=== PATIENT | male | born 1965 | race Caucasian/White ===

== ENCOUNTER 2019-10-20 18:36 | Observation (INO) | payer OTHER, SELFPAY ==
[2019-10-20] VITALS (38 sets, daily range): BP systolic 127–182; BP diastolic 79–131; PULSE 77–107; RESP 13–30; TEMP 36.4; O2SAT 93–99
[2019-10-20] MEDS: Normal Saline 1,000 ML 1000 ML IV (18:43)
[2019-10-20 18:47] LABS: BE (Venous) 2.6 mmol/L (-3-3); HCO3 (Venous) 28 mmol/L (22-28); O2 Sat (Venous) 69 % (70-80); TCO2 (Venous) 24 mmol/L (22-29); pCO2 (Venous) 45 mm/Hg (34-47); pO2 (Venous) 36 mm/Hg (28-44)
--- NOTE | 2019-10-20 19:00 | W.ED.GENAD ---
Discharge Plan Disposition Patient Disposition: [facility] IN[facility] Condition: Stable Discharge Details Chief Complaint: ETOHWithdr Clinical Impression: Alcohol dependence with acute alcoholic intoxication, Depression, Suicidal intent Admit Date/Time: 10/21/19 15:15 Admit Provider: Shannen Luna Attending Provider: Shannen Luna Primary Care Provider: Li Betancourt ED Provider: Guillermina Vivar Discharge Data Discharge Date/Time-TO BE ENTERED AT DEPARTURE: 10/21/19 16:02 Medical Decision Making <Abdirahman Swain DO - Last Filed: 10/20/19 23:49> This is a 53-year-old male with a past medical history of significant alcoholism, who [facility] to [facility] as he stated he was trying to withdraw. This evening he took a few Valium which seemed to be 3-4 Valium per EMS count. There were 5 mg each. He states that he was trying to hurt himself but regrets it now. He is notably intoxicated. He has no history of DT's in the past. He is notably intoxicated but he is also very aggressive, which appears inconsistent with a Valium overdose. We will monitor closely evaluate for any other toxic ingestion, rehydrate, and get a sitter, and contact mental health for evaluation. 11:19 PM Mental health has come and seen reassess the patient, they to feel that although he is intoxicated now that he would benefit from potential admission and certainly rehab. Laboratory work-up is notably unremarkable. Salicylates acetaminophen are negative. Alcohol is 193. Urine drug screen is also negative which was unexpected. The patient does agree to accepting help, as well as alcohol detoxification in therapy. Family requested specifically that [facility] for [facility] of this as a notable plan was already in place for the patient there. We did contact the [facility], and unfortunately secondary to the patient's insurance they will not pay for him to be transported via EMS. At first after this news family decided to keep him here, however after multiple discussions with family, and mental health and shared decision making process family made it clear that above all else they wanted him going to the [facility] for the [facility]hab and detoxification, and would be willing to pay whatever ambulance bill was necessary. The [facility] was contacted again, I spoke with Dr. Anderson in the ED, and after contacting with both her supervisor final and the hospital arts administrator or manager she states that there is a new policy at this time that is not yet on paper but currently the modus operandi of the system at the [facility]. She states that before any patient is able to be transferred for potential rehab or detox and need to be medically sober with a blood draw demonstrating no evidence of significant intoxication, after this they can then consent for transfer to the facility. She has requested specifically that a repeat alcohol level be drawn at 2 AM, and if it is within normal limits at that time patient can be transferred to the facility potentially directly to mental health at [facility]. Case was signed out to my colleague Dr. Mcgill for repeat assessment upon repeat alcohol draw. EKG 18: 37 Rate 106, intervals normal, sinus tachycardia, no significant ST elevation or depression, notable artifact. Questionable Q wave in lead III and aVF. No evidence of STEMI. No widened QRS. <Jose Manuel Mcgill MD - Last Filed: 10/21/19 20:13> Patient signed out to me pending repeat alcohol level and discussion with [facility] regarding transfer. Patient had presented to ED with alcohol intoxication and depression/suicidal thoughts. He had been seen at the [facility] for alcohol dependence. He has been seen by mental health who has been able to get from him that last week he actually had a gun that he was considering using to end his life. Patient's family has subsequently removed all guns from the house. Today patient reportedly took Valium and alcohol in an attempt to make everything stop. He has been with a CPSO during his stay here. He has been for the most part calm and cooperative and respectful. I spoke to the residential door unit installer at the [facility] when the patient's repeat alcohol level came back below 80. Resident then spoke to the patient directly over the phone. Patient had told me that he was willing to go to [facility] for help. Once he spoke to the resident at the [facility] and was told what the unit was like and what was expected, he decided he would not go there. His nurse spoke to him at length. We had his speak to him at length. He declines to voluntarily go to the [facility] at this point. I do not think that he is safe for discharge home. I will plan to keep him here with transition to a bed upstairs to reconvene case management, mental health, family in determining next appropriate step. I did explain to the patient that I did not think he was safe for discharge. I also explained the difference between voluntary and involuntary placement. Given the events and the alcohol use if necessary patient would be appropriate to EE. He is aware of this and at this point in time agrees to voluntarily stay here for further evaluation and management. I have placed him on CIWA protocol with p.o. Ativan as needed. Will be maintained with CPSO. Is medically cleared at this point and not showing any significant signs of alcohol withdrawal. Lab Data Lab results reviewed: Yes I reviewed the patient's lab results. <Guillermina Vivar DO - Last Filed: 10/21/19 17:36> 0800 --please see previous providers notes for initial presentation, plan and course. 53-year-old male with a history of depression and heavy alcohol use presented last evening after taking 5-6 Valium while intoxicated. He texted his that he was sorry for everything and he was going to go to sleep. His was very concerned with this text that he was suicidal and returned home and called 911. Patient intoxicated on arrival to ED but is now sober and has been medically cleared. Case endorsed to follow-up with care management mental health regarding inpatient hospitalization. Patient is followed at the [facility] and plan is for transfer to their mental health unit. Patient is currently voluntary. If is requesting to leave, plan is for completing EE paperwork. 1000 --mental health discussed with patient who is not in agreement with plan for hospitalization. This was discussed with patient at bedside and he stated I guess I have no choice and was understanding of plan for completing EE. Luz Elena from mental health discussed with patient at bedside who stated that his license to carry arms would likely be revoked if he is not voluntary and has EE. Patient was also of the understanding that he would be on lockdown and in a cage at the [facility] which we discussed would not be the case. After further discussion, patient is now voluntary. 1200 --no beds available at the [facility]. Case discussed with care management and mental health and will determine if patient is able to be sent to any other facility based on insurance coverage as he is not fully serviced through the [facility]. 1400 --Case discussed with care management and patient can be admitted here overnight pending inpatient hospitalization. Discussed with hospitalist who accepts patient for admission. HPI <Abdirahman Swain DO - Last Filed: 10/20/19 23:49> General Date/Time Provider Initiated Documentation: 10/20/19 18:39. HPI Narrative: This is a 53-year-old male with a past medical history of depression, PTSD, chronic alcoholism, who presents today from [facility] for evaluation of potential overdose. is at bedside, per she states that for the last few weeks he has been having a notably difficult time he has been drinking an excessive amount of alcohol. He has sought some help at the [facility], and he was recently prescribed some Valium to prevent DTs. He has no history of seizures though. Earlier tonight he took 3-4 Valium in addition to having had significant alcohol intoxication. He apologized to his profusely in his intoxicated state, and states that he was trying to hurt himself and regrets it. EMS was called and the patient was brought to the ED for further evaluation. Patient does appear notably intoxicated, however at this time he states that he is not suicidal but he did try to hurt himself before. Vital signs are stable by EMS. Patient is a poor historian secondary to his intoxication. denies any other complaints or significant other medical problems aside for hypertension. states that he is once depressed and suicidal before years ago before she was involved in his life. Related Data Home Medications Medication Instructions Recorded Confirmed atorvastatin 40 mg PO DAILY 10/21/19 10/21/19 hydrochlorothiazide 25 mg PO DAILY 10/21/19 10/21/19 lisinopril 40 mg PO DAILY 10/21/19 10/21/19 Allergies Allergy/AdvReac Type Severity Reaction Status Date / Time No Known Allergies Allergy Unverified 10/20/19 19:23 General Stated Complaint: ETOHWithdr JOVAN: 2 Review of Systems <Abdirahman Swain DO - Last Filed: 10/20/19 23:49> All systems reviewed & are unremarkable except as noted in HPI and below PFSH <Abdirahman Swain DO - Last Filed: 10/20/19 23:49> Medical History (Updated 10/21/19 @ 17:59 by Mandi Salamanca NP) Alcohol abuse (Chronic) Anxiety (Chronic) Depression (Chronic) Former smoker (Acute) Hyperlipidemia (Acute) Hypertension (Chronic) Surgical History (Updated 10/21/19 @ 18:00 by Mandi Salamanca NP) H/O elbow surgery (Acute) H/O right wrist surgery (Acute) H/O spinal fusion (Acute) Social History Smoking/Tobacco Use Status: Former Tobacco Use Alcohol Intake: current Alcohol Intake frequency: 3 or more drinks per day Alcohol type: beer Details: unknown- taking benzodiazepines for withdrawal per pt report. Approx 30 beers/day Additional Social history: unable to assess privately Exam <Abdirahman Swain DO - Last Filed: 10/20/19 23:49> Narrative Exam Narrative: 1.Const: Well-nourished, Well-developed, appearing stated age, no evidence of significant trauma. 2.Eyes: PERRL, no conjunctival injection, and symmetrical lids. 3.ENT: Atraumatic external nose and ears. Moist MM. Neck: Symmetric, trachea midline, No thyromegaly. 4.CVS: +S1/S2, No murmurs or gallops. Peripheral pulses 2+ and equal in all extremities. Brisk capillary refill in all extremities. 5.RESP: Unlabored respiratory effort. Clear to auscultation bilaterally. No wheezes rales or rhonchi. No stridor. 6.GI: Soft, Nontender/Nondistended, No hepatosplenomegaly. No guarding or rebound. 7.MSK: Normocephalic/Atraumatic, Extremities w/o deformity or ttp No cyanosis or clubbing, Normal movement of all extremities 8.Skin: Warm, Dry. No rashes or lesions. 9.Neuro: senior structural engineer II-XII grossly intact. Sensation grossly intact, no focal neurologic deficits. 10.Psych: (AAO) x3. Notably intoxicated. Course <Abdirahman Swain DO - Last Filed: 10/20/19 23:49> Vital Signs Vital signs: Vital Signs Temperature 36.4 C L 10/20/19 18:32 Pulse 107 H 10/20/19 18:32 Respiratory Rate 22 10/20/19 18:32 Blood Pressure 171/131 H 10/20/19 18:32 Pulse Oximetry 98 10/20/19 18:32 Temperature 36.4 C L 10/20/19 18:32 Temperature Source Skin 10/20/19 18:32 Pulse 107 H 12/02/19 18:32 Respiratory Rate 22 10/20/19 18:32 Blood Pressure 171/131 H 10/20/19 18:32 Blood Pressure Position Supine 10/20/19 18:32 Pulse Oximetry 98 10/20/19 18:32 Oxygen Delivery Method Room Air 10/20/19 18:32 Oxygen Flow Rate 0 10/20/19 18:32 Lab/Test Results Lab/Test Results: Laboratory Tests Range/Units 10/20/19 18:40 VBG pH (7.32-7.43) 7.40 VBG pCO2 (34-47) mm/Hg 45 VBG pO2 (28-44) mm/Hg 36 VBG HCO3 (22-28) mmol/L 28 VBG Total CO2 (22-29) mmol/L 24 VBG O2 Saturation (70-80) % 69 L VBG Base Excess (-3-3) mmol/L 2.6 Sign Out <Abdirahman Swain DO - Last Filed: 10/20/19 23:49> Sign Out Data: Sign Out Comment: Repeat alcohol level at 2 AM, reassessment at that time. [facility] Recommend discussing case with Dr. Anderson at the [facility] prior to transfer. Last updated by Abdirahman Swain DO at 10/20/19 23:50 Sign Out Comment: Pending reevaluation by mental health, case management and attempts to find placement. Last updated by Jose Manuel Mcgill MD at 10/21/19 08:01
[2019-10-20 19:03] LABS: ALT 47 U/L (16-63); AST 34 U/L (15-37); Albumin 3.8 g/dL (3.4-5.0); Alkaline Phosphatase 83 U/L (46-116); BUN 10 mg/dL (7-18); Bilirubin, Total 0.3 mg/dL (0.2-1.0); CREATININE 1.07 mg/dL (0.70-1.30); Chloride 103 mmol/L (98-107); Glucose 103 mg/dL (74-106); Potassium 3.4 mmol/L (3.5-5.1); Sodium 141 mmol/L (136-145); Total Protein 7.9 g/dL (6.4-8.2)
[2019-10-20 19:13] LABS: ETHANOL BLOOD 193.4 mg/dL (<3); TSH (W/Ref FT4) 1.23 uIU/mL (0.36-3.74); Troponin I < 0.05 ng/Ml (<0.06)
[2019-10-20 19:15] LABS: Abs Immature Grans 0.02 k/cumm (0.0-0.09); Absolute Basophil Count 0.03 k/cumm (0.0-0.2); Absolute Lymphocyte Count 2.01 k/cumm (1.2-3.4); Absolute Monocyte Count 0.59 k/cumm (0.11-0.7); Absolute Neutrophil Count 2.91 k/cumm (1.2-6.7); Basophils % 0.5; Eosinophils % 3.5; HCT 46.4 % (40.0-50.0); HGB 15.7 g/dL (13.5-17.5); Immature Grans % 0.3; Lymphocytes % 34.9; Mean Corp. HGB Concentration 33.8 g/dL (32.0-36.0); Mean Corpuscular Hemoglobin 31.2 pg (27.0-33.0); Mean Corpuscular Volume 92.1 fL (80-95); Mean Platelet Volume 9.9 fL (8.0-11.0); Monocytes % 10.2; Neutrophils % 50.6; Platelet Count 248 x1000/uL (130-400); RBC 5.04 m/cumm (4.50-6.00); RBC Distribution Width 12.4 % (11.8-14.1); White Blood Cell Count 5.76 k/cumm (4.4-10.8)
[2019-10-20 19:20] LABS: Salicylate < 2.8 mg/dL (2.8-20.0)
[2019-10-20 19:21] LABS: Acetaminophen < 2 ug/mL (10-30)
[2019-10-20 19:30] LABS: *AMPHETAMINES SCREEN URINE Negative (Negative); *BARBITURATES SCREEN URINE Negative (Negative); *BENZODIAZEPINES SCREEN URINE Negative (Negative); Cannabinoids THC Negative (Negative); Cocaine Screen,Urine Negative (Negative); METHADONE URINE SCREEN Negative (Negative); OPIATES URINE SCREEN Negative (Negative)
[2019-10-20 19:31] LABS: Tricyclic Antidepressants Negative (Negative)
[2019-10-20] MEDS: MAGNESIUM SULFATE 8.12 MEQ, MULTIVITAMIN 10 ML, THIAMINE 100 MG, FOLIC ACID 1 MG in Nor... 168.867 MG IV (20:00)
--- NOTE | 2019-10-20 20:51 | PDOC.CMSAFED ---
- If Service Date Differs Date of service: 10/20/19 Time of Service: 20:51 Care Management Safety Plan Jose David is a 53 year old man who was brought to the ED by EMS after reportedly taking 3-4 Valium pills while intoxicated . He told that he wanted to hurt himself, but he regrets it now. Per , he has been having a hard time and has been drinking a lot in the past few weeks. [facility] and was prescribed Valium to help with withdrawal. He does have a remote history of depression with a suicidal attempt. Jose David stated to the provider that he does not want to hurt himself at this time. He remains visibly intoxicated with an elevated blood alcohol level. Will be screened by Mental Health when sober. CM will respond to ED to assess patient after patient has been medically cleared and assessed by screener. If screener deems patient meets criteria for psychiatric stabilization CM will facilitate interdepartmental huddle with [facility] screener for safety planning considerations and meet with patient to review [facility] policy and safety plan, establish individual wishes for treatment and maintain patient rights. In the interim; please note safety plan below to guide patient care while awaiting further assessment in the ED. SAFETY PLAN: 1. Will remain on suicide precautions and in paper clothes. 2. Will remain in room under direct supervision of one-on-one staff at all times provided by JAZMINE, HOME HEALTH CARE PROVIDER supervisor electron tube processing. 3. May have paper cups, plates, finger foods as well as a cardboard spoon with which to eat meals. 4. Follow [facility] Management of the Admitted Behavioral Health Patient policy. 5. Comfort bath system only. 6. No personal belongings 7. only to visit. 8. Phone contact limited to . 9. Due to VOLUNTARY status, if patient wishes to leave [facility], the [facility] cut in worker must be contacted to re-evaluate patient prior to patient exiting the building. If deemed appropriate for inpatient psychiatric care, safety plan will be established with patient, and care team, to adhere to patient goals, identify restrictions based on behavioral status, address nutrition, and determine allowed personal belongings, tools for hygiene and personal care. As well plan will determine level of activity including ambulation, level of supervision, visitors, and determine privileges based on level of acuity, behaviors and level of engagement by patient.
--- NOTE | 2019-10-20 22:29 | NUR.NOTE ---
Nursing Note: mental health at bedside
[2019-10-21] VITALS (45 sets, daily range): BP systolic 127–160; BP diastolic 79–98; PULSE 74–94; RESP 11–23; TEMP 36.5–36.8; O2SAT 97–100
--- NOTE | 2019-10-21 01:18 | PDOC.MHCN ---
Date of service: 10/20/19 Time of Service: 21:20 Mental Health Crisis Note Presenting Issue How did you arrive at the ED and why did you come: This casualty underwriter was paged by emergency services to screen patient at the ED. Patient was under the influence, a preliminary screening was done. Precipitating Factors Client was able to identify stressors in his life that caused him to come into the ED this evening. He was able to share after a long conversation with this casualty underwriter that he took medication earlier with alcohol to make it stop the thoughts. He also shared that he required help during a previous incident where he had to call his cousin to come and be with him as he had a gun and was in his truck contimplating that he was going to end it. The family shared that the guns where removed from the home. Disposition BEHAVIOR: Client's behavior at first was subdued, as he woke up. Then he became friendly, as we continued to talk his presentation started to change. he was cooperative, then guarded but, friendly with repetitive movements. CLutching his fists, breathing deeply and his blood pressure went up when mentioning having a natural support come into support him. EYE CONTACT: Client had direct eye contact at first. Then it turned to intense and then to avoident. MOOD: Client was cheerful at first, as he was waking when entering the room. Then he became tearful and upset the further the conversation went and the more stressor the client shared. APPETITE: Client shared that he drank his breakfast, lunch, and dinner which consisted of alcohol. He ate very little food. SLEEP(trouble falling/staying asleep: Client reported that he averages about 4 hours of sleep at night. Plan Client will stay at [facility], with the [facility] to the [facility]. Client's blood will be drawn at 2 am, if no alcohol is in the system then he will be considered for admisssion to the [facility]. If the [facility] declines him, he will stay at [facility] and be reassessed in the morning. Provisional Diagnosis Adjustment Disorder: Mixed anxiety and depressed mood. Signature Clinician's Name/Title: Molly [facility] - Emergency Services Screener (compensation programs manager)
[2019-10-21 02:29] LABS: ETHANOL BLOOD 72.7 mg/dL (<3)
[2019-10-21 10:06] LABS: ETHANOL BLOOD < 3.0 mg/dL (<3)
--- NOTE | 2019-10-21 11:58 | PDOC.MHCN_ITS ---
Date of service: 10/21/19 Time of Service: 11:59 Mental Health Crisis Note Presenting Issue How did you arrive at the ED and why did you come: Carolyn presents to the [facility] after a suicide attempt. Precipitating Factors Carolyn is a 53 y.o. MWM who initially was showing poor insight and judgment but later we learned that this was due to poor information that was given to him in regards to hospitalization. Once this was cleared up for him and he was informed that an involuntary admission was in the works if he did not go voluntary he would likely lose his right to bare firearms he was more willing to accept treatment. Disposition BEHAVIOR: Carolyn is cooperative and engaged in the screening process more intently now that his misunderstandings were cleared up. He is polite and asking great questions. EYE CONTACT: Eye contact is good AFFECT: mostly flat but does show some engagement on occassion APPETITE: Good SLEEP(trouble falling/staying asleep: Good last night Plan Carolyn will be admitted upstairs pending bed availability at the [facility]. Provisional Diagnosis Depressive d/o unspecified Signature Clinician's Name/Title: Luz Elena Maharaj MS Emergency Services Clinician, [facility]
--- NOTE | 2019-10-21 15:14 | CMSP_ITS ---
- If Service Date Differs Date of service: 10/21/19 Time of Service: 15:14 Care Management Safety Plan Care Management Safety Plan Jose David is a 53 year old man who was brought to the ED by EMS after reportedly taking 3-4 Valium pills while intoxicated . He told that he wanted to hurt himself, but he regrets it now. Per , he has been having a hard time and has been drinking a lot in the past few weeks. [facility] and was prescribed Valium to help with withdrawal. He does have a remote history of depression with a suicidal attempt. Jose David stated to the provider that he does not want to hurt himself at this time. He remains visibly intoxicated with an elevated blood alcohol level. Will be screened by Mental Health when sober. CM (Jennifer) facilitated interdepartmental huddle with [facility] screener MD (Rose) (Dr. Vivar) and nursing for safety planning considerations and met with patient to review [facility] policy and safety plan, establish individual wishes for treatment and maintain patient rights. SAFETY PLAN: 1. Will remain on suicide precautions and in paper clothes. 2. Will remain in room under direct supervision of one-on-one staff at all times provided by JAZMINE, BLOW MOLD TECHNICIAN annealing torch operator. 3. May have paper cups, plates, finger foods as well as a cardboard spoon with which to eat meals. 4. Follow [facility] Management of the Admitted Behavioral Health Patient policy. 5. Comfort bath system only. 6. Personal belongings: tablet (homicide detective to remain with CPSO), eye glasses 7. Visitors allowed: , mother, Aunt Luz Elena, Cousin Ralph, Uncle Cherie. 8. Phone contact limited to the above visitors and son Jhonny and daughter Lurdes . 9. Due to VOLUNTARY status, if patient wishes to leave [facility], the [facility] pharmaceutical worker must be contacted to re-evaluate patient prior to patient exiting the building. cc:
--- NOTE | 2019-10-21 16:08 | NUR.NOTE ---
Nursing Note: Pt specific bottle of diazepam left behind in ED- Tisha in pharmacy took bottle to pharmacy to be secured & will notify staff upstairs.
--- NOTE | 2019-10-21 17:38 | HPE_ITS ---
Date of service: 10/21/19 Time of Service: 17:39 Assessment and Plan Assessment and plan (1) Alcohol abuse: Status: Chronic Assessment and plan: Reports drinking 15-30 beers per day, every day. Reported suicidal gestures while intoxicated. Reports that he has had symptoms of alcohol withdrawal in the past when he stopped drinking. Placed on CIWA protocol, Ativan as needed per protocol. (2) Suicide gesture: Status: Acute Assessment and plan: Reported suicidal gestures while intoxicated. One episode with firearm involvement. One episode involved taking multiple Valium tablets. Both episodes were while intoxicated. He is agreeable to hospitalization at a psychiatric facility. He has had increasing anxiety over the last few months. He has had a history of depression many years ago with possible suicidal ideation at that time. Mental health is working with him to get him placed at a psychiatric facility for appropriate treatment. (3) Depression: Status: Chronic Assessment and plan: Likely related to survivors guilt, possible PTSD. He struggled depression in the past, approximately 20 years ago. He has never been on medication for depression or anxiety. He is agreeable to psychiatric hospitalization. (4) Anxiety: Status: Chronic Assessment and plan: As above. With increasing anxiety over the last few months. (5) Hypertension: Status: Chronic Assessment and plan: His blood pressure has been within an acceptable range. Continue his usual medications including hydrochlorothiazide and lisinopril at noon daily. Continue to monitor blood pressure. (6) Hyperlipidemia: Status: Acute Assessment and plan: Continue atorvastatin. (7) DVT prophylaxis: Status: Acute Assessment and plan: Subcutaneous Lovenox. (8) Discharge planning issues: Status: Acute Assessment and plan: Mental health is working with him to get him placed at a psychiatric facility. This case was discussed with Dr. Luna who is in agreement. History of Present Illness History of Present Illness Chief Complaint: Suicidal gesture, alcohol abuse Narrative: Jose David Rogers is a pleasant 53 year old with a past medical history significant for hypertension, hyperlipidemia, alcohol abuse, depression in the past and recent anxiety who presented to the ED via EMS after his found him intoxicated and having taken approximately 5 valium. He reported that he was just trying to go to sleep. His is highly concerned that he is suicidal. She also reported that he was recently found with a gun on his lap and was making suicidal comments. He reports having increased stressors in his life and increasing anxiety over the last few months. He has been drinking 15-30 beers per day. He has been a heavy drinker for years. His reports that he had an episode of depression with suicidal ideation approximately 20 years ago. 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 On the tour, 2 of his friends and he has struggled with guilt since that time. In the ED, he was monitored for alcohol withdrawal. He was not found to have symptoms of withdrawal. Attempts were made to transfer him to the [facility] and were unsuccessful. His alcohol level was followed and was found to be negative this m orning. He is admitted to the med/surg floor for further evaluation and monitoring. Mental health will continue to follow him and attempt to get him placed at a psychiatric facility. He does not currently endorse suicidal ideation. He is agreeable to transfer to a psychiatric facility. He denies he adache, dizziness, tremors, diaphoresis, he is eating and drinking tolerating his diet, no nausea, vomiting or diarrhea. He denies chest pain/pressure, palpitations, edema, shortness of breath, coughing, wheezing. 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 He is questioning whether he needs to have the surgery repeated. He is not currently a smoker, he has a 27-dimh-jpls history of smoking, he quit 12 years ago. He has had chest pain recently, he reports having an echocardiogram and a stress test last week at the [facility]. He suspects anxiety is contributing to his chest pain, he has not heard the results on his tests yet. Review of Systems All systems reviewed & are unremarkable except as noted in HPI and below [facility] Medical History (Updated 10/21/19 @ 17:59 by Mandi Salamanca NP) Alcohol abuse (Chronic) Anxiety (Chronic) Depression (Chronic) Former smoker (Acute) Hyperlipidemia (Acute) Hypertension (Chronic) Surgical History (Updated 10/21/19 @ 18:00 by Mandi Salamanca NP) H/O elbow surgery (Acute) H/O right wrist surgery (Acute) H/O spinal fusion (Acute) Social History Alcohol Intake: current Alcohol Intake frequency: 3 or more drinks per day Alcohol type: beer Details: unknown- taking benzodiazepines for withdrawal per pt report. Approx 30 beers/day Additional Social history: unable to assess privately Meds Home Medications and Allergies Home Medications Medication Instructions Recorded Confirmed Type atorvastatin 40 mg PO DAILY 10/21/19 10/21/19 History hydrochlorothiazide 25 mg PO DAILY 10/21/19 10/21/19 History lisinopril 40 mg PO DAILY 10/21/19 10/21/19 History Allergies Allergy/AdvReac Type Severity Reaction Status Date / Time No Known Allergies Allergy Unverified 10/20/19 19:23 Exam Narrative Exam Narrative: General: 53-year-old male, appears stated age, sitting up in bed. Calm and cooperative, answers questions appropriately. Alert and oriented x3. present. No tremor noted. No diaphoresis. HEENT: Normocephalic, atraumatic, pupils equal and round, EOMI, mucous membranes moist. Neck: Supple, no JVD. Cardiovascular: Heart has regular rate and rhythm, no murmur appreciated. Respiratory: Respirations appear even and unlabored, lung sounds clear to auscultation bilaterally. GI: Normoactive bowel sounds x4 quadrants, abdomen soft, nontender on palpation. Extremities: Well perfused, no clubbing, cyanosis or edema. No calf swelling or tenderness. Pedal pulses palpable bilaterally. Results Labs Result diagrams: 10/20/19 18:40 10/20/19 18:40 Labs: Laboratory Results - last 24 hr 10/20/19 10/20/19 10/20/19 18:40 18:40 18:40 WBC RBC Hgb Hct MCV MCH MCHC RDW Plt Count MPV Immature Gran % Neutrophils % Lymphocytes % Monocytes % Eosinophils % Basophils % Absolute Neutrophils Absolute Lymphocytes Absolute Monocytes Absolute Eosinophils Absolute Basophils VBG pH VBG pCO2 VBG pO2 VBG HCO3 VBG Total CO2 VBG O2 Saturation VBG Base Excess Sodium 141 Potassium 3.4 L Chloride 103 Carbon Dioxide 27.0 Anion Gap 11.0 BUN 10 Creatinine 1.07 Estimated GFR/1.73 m2 >= 60.00 Glucose 103 Calcium 9.0 Total Bilirubin 0.3 AST 34 ALT 47 Alkaline Phosphatase 83 Troponin I < 0.05 Total Protein 7.9 Albumin 3.8 TSH 1.23 Salicylates < 2.8 L Urine Opiates Screen Urine Methadone Screen Acetaminophen < 2 L Ur Barbiturates Screen Ur Tricyclics Screen Ur Amphetamines Screen U Benzodiazepines Scrn Urine Cocaine Screen Ur THC Screen Ethyl Alcohol 193.4 10/20/19 10/20/19 10/20/19 18:40 18:40 19:10 WBC 5.76 RBC 5.04 Hgb 15.7 Hct 46.4 MCV 92.1 MCH 31.2 MCHC 33.8 RDW 12.4 Plt Count 248 MPV 9.9 Immature Gran % 0.3 Neutrophils % 50.6 Lymphocytes % 34.9 Monocytes % 10.2 Eosinophils % 3.5 Basophils % 0.5 Absolute Neutrophils 2.91 Absolute Lymphocytes 2.01 Absolute Monocytes 0.59 Absolute Eosinophils 0.20 Absolute Basophils 0.03 VBG pH 7.40 VBG pCO2 45 VBG pO2 36 VBG HCO3 28 VBG Total CO2 24 VBG O2 Saturation 69 L VBG Base Excess 2.6 Sodium Potassium Chloride Carbon Dioxide Anion Gap BUN Creatinine Estimated GFR/1.73 m2 Glucose Calcium Total Bilirubin AST ALT Alkaline Phosphatase Troponin I Total Protein Albumin TSH Salicylates Urine Opiates Screen Negative Urine Methadone Screen Negative Acetaminophen Ur Barbiturates Screen Negative Ur Tricyclics Screen Negative Ur Amphetamines Screen Negative U Benzodiazepines Scrn Negative Urine Cocaine Screen Negative Ur THC Screen Negative Ethyl Alcohol 10/21/19 10/21/19 02:20 09:52 WBC RBC Hgb Hct MCV MCH MCHC RDW Plt Count MPV Immature Gran % Neutrophils % Lymphocytes % Monocytes % Eosinophils % Basophils % Absolute Neutrophils Absolute Lymphocytes Absolute Monocytes Absolute Eosinophils Absolute Basophils VBG pH VBG pCO2 VBG pO2 VBG HCO3 VBG Total CO2 VBG O2 Saturation VBG Base Excess Sodium Potassium Chloride Carbon Dioxide Anion Gap BUN Creatinine Estimated GFR/1.73 m2 Glucose Calcium Total Bilirubin AST ALT Alkaline Phosphatase Troponin I Total Protein Albumin TSH Salicylates Urine Opiates Screen Urine Methadone Screen Acetaminophen Ur Barbiturates Screen Ur Tricyclics Screen Ur Amphetamines Screen U Benzodiazepines Scrn Urine Cocaine Screen Ur THC Screen Ethyl Alcohol 72.7 < 3.0 Last Vital Signs Temp 36.5 C 10/21/19 16:23 Pulse 86 10/21/19 16:23 Resp 18 10/21/19 16:23 BP 152/97 H 10/21/19 16:23 Pulse Ox 98 10/21/19 16:23
[2019-10-21] MEDS: LORazepam 1 MG TAB PO/SL ×2 (18:29→22:43)
[2019-10-22 00:14] VITALS: BP 130/84; PULSE 65; RESP 17; TEMP 36.7; O2SAT 97
[2019-10-22 07:03] LABS: BUN 16 mg/dL (7-18); CREATININE 0.91 mg/dL (0.70-1.30); Calcium 8.5 mg/dL (8.5-10.1); Chloride 105 mmol/L (98-107); Glucose 107 mg/dL (74-106); Sodium 139 mmol/L (136-145)
[2019-10-22 07:12] LABS: Anion Gap 9.4 mmol/L (3-11); CO2 24.6 mmol/L (21.0-32.0)
[2019-10-22 07:35] VITALS: BP 138/94; PULSE 76; RESP 17; TEMP 36.6; O2SAT 99
--- NOTE | 2019-10-22 08:23 | ED.FU.B_ITS ---
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 Carolyn has a long hx of ETOH abuse and as a result of this and a reported trauma hx from his service he has not been coping well. I met with Jose David this morning and his was in the room with him. He is in pleasant spirits this morning and is trying to eat some breakfast stating some hot sauce would make it better. He reported he thinks he slept well last nigh t. Carolyn denied SI today but is able to see that he is SI when he is drinking. A discussion was had around what he is able to bring with him for this admission and we discussed that he is able to bring some comforts from home but typically things not allowed are electronics weapons etc. This seemed to be a relief for his . [facility] Luz Elena Maharaj
[2019-10-22 09:40] VITALS: BP 136/88; PULSE 70; RESP 17; TEMP 36.7; O2SAT 99
[2019-10-22] MEDS: LORazepam 1 MG TAB PO/SL (10:21)
[2019-10-22] MEDS: Atorvastatin 40 MG TAB PO (12:55)
[2019-10-22] MEDS: hydroCHLOROthiazide 25 MG TAB PO (12:56)
[2019-10-22] MEDS: Lisinopril 20 MG TAB 40 MG PO (12:56)
[2019-10-22 14:12] VITALS: BP 125/78; PULSE 86; RESP 17; TEMP 36.7; O2SAT 97
--- NOTE | 2019-10-22 15:25 | CMSP_ITS ---
- If Service Date Differs Date of service: 10/22/19 Time of Service: 15:25 Care Management Safety Plan Jose David is a 53 year old man who was brought to the ED by EMS after reportedly taking 3-4 Valium pills while intoxicated . He told that he wanted to hurt himself, but he regrets it now. Per , he has been having a hard time and has been drinking a lot in the past few weeks. [facility] and [facility] Val[facility] to help with withdrawal. He does have a remote history of depression with a suicidal attempt. Jose David stated to the provider that he does not want to hurt himself at this time. He remains visibly intoxicated with an elevated blood alcohol level. Will be screened by Mental Health when sober. CM (Jennifer) facilitated interdepartmental huddle with [facility] screener (Luz Elena), and nursing (Renu) for safety planning considerations and met with patient to review [facility] policy and safety plan, establish individual wishes for treatment and maintain patient rights. SAFETY PLAN: 1. Will remain on suicide precautions and in paper clothes. May wear his own underwear. 2. Will remain in room under direct supervision of one-on-one staff at all times provided by JAZMINE, STAFF READINESS OFFICER commercial administrator. 3. May have paper cups, plates, finger foods as well as a metal spoon with which to eat meals. CPSO to remove spoon after meal. 4. Follow [facility] Management of the Admitted Behavioral Health Patient policy. 5. May shower. 6. Personal belongings: tablet (light armored reconnaissance officer to remain with CPSO), eye glasses 7. Visitors allowed: , Aunt Luz Elena, Cousin Ralph, Uncle Cherie. 8. Phone contact limited to the above visitors and son Jhonny and daughter Lurdes. 9. Due to VOLUNTARY status, if patient wishes to leave [facility], the [facility] before and after school daycare worker must be contacted to re-evaluate patient prior to patient exiting the building.
--- NOTE | 2019-10-22 15:55 | PDOC.CMDIS ---
- If Service Date Differs Date of service: 10/22/19 Time of Service: 15:55 LACE Index Scoring Tool - Questions: Length of Stay (in days): 2 Acuity (Admit via E.D.?): Yes E.D. Visits: 1 - Answers: Total Score: 6 Risk of Readmission: Low Risk Care Management Discharge Reason for Hospitalization: alcohol abuse Discharge Plan: Migel will be transferred to [facility] for substance abuse abd mental health treatment. he will transport via ambulance coordinated by CM. Patient/Family Education Needs: Expectations and limitations at [facility]. Services Needed at Discharge: Transportation
--- NOTE | 2019-10-22 16:04 | DSE_ITS ---
Date of service: 10/22/19 Time of Service: 16:04 DS: Diagnosis Discharge Diagnosis (1) Alcohol abuse: Status: Chronic (2) Suicide gesture: Status: Acute (3) Depression: Status: Chronic (4) Anxiety: Status: Chronic (5) Hypertension: Status: Chronic (6) Hyperlipidemia: Status: Acute (7) DVT prophylaxis: Status: Acute (8) Discharge planning issues: Status: Acute Discharge Plan Disposition Patient Disposition: [facility] [place] Condition: Stable Discharge Details Chief Complaint: ETOHWithdr Clinical Impression: Alcohol dependence with acute alcoholic intoxication, Depression, Suicidal intent Reason For Visit: SUICIDAL IDEATION/GESTURE Admit Date/Time: 10/21/19 15:15 Admit Provider: Shannen Luna Attending Provider: Shannen Luna Primary Care Provider: Li Betancourt ED Provider: Guillermina Vivar Hospital Course Hospital Course: Jose David Rogers is a pleasant 53 year old with a past medical history significant for hypertension, hyperlipidemia, alcohol abuse, depression in the past and recent anxiety who presented to the ED via EMS on 10/20/19 after his found him intoxicated and having taken approximately 5 valium. He reported that he was just trying to go to sleep. His is highly concerned that he is suicidal. She also reported that he was recently found with a gun on his lap and was making suicidal comments. He reports having increased stressors in his life and increasing anxiety over the last few months. His admits to marital problems. He reported that he has been a heavy drinker for years, he has recently been drinking 15-30 beers per day. He has a remote history of depression with suicidal ideation approximately 20 years ago. 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 On the tour, 2 of his friends and he has struggled with guilt since that time. In the emergency department, he was monitored for alcohol withdrawal as attempts were made to place him at a [facility] facility. His alcohol level was <3 by the time he left the ED. Yesterday, 10/21/2019, [facility] for observation and monitoring for withdrawal symptoms. Overnight, he began to score on the CIWA protocol and received Ativan. He was noted to have increased anxiety and tremors. During his observation period, he did not endorse suicidal ideation, however, he was agreeable to transfer to a psychiatric facility. He denied any other concerns such as shortness of breath, coughing, wheezing, chest pain/pressure, palpitations. He was eating and drinking and tolerating his diet, no nausea, vomiting or diarrhea. He remained on his usual home medications. His labs were unremarkable on the day of discharge. He states that when he has stopped drinking in the past, he has had some withdrawal symptoms, not seizures. He denies cessation from alcohol for any significant amount of time over the last several years. Of note, he reported recent chest pain for which he had an echocardiogram and a stress test last week at the [facility]. He suspects anxiety is contributing to his chest pain, he has not heard the results on his tests yet. He was accepted to the [facility] for acute alcohol withdrawal and appropriate mental health care. He will transfer by ambulance. Home Meds and New Rx's Prescriptions: New multivitamin [Multiple Vitamins] Tablet 1 tab PO DAILY Qty: 0 RF: 0 folic acid 1 mg Tablet 1 mg PO DAILY Qty: 1 RF: 0 thiamine mononitrate (vit B1) [Vitamin B-1 (mononitrate)] 100 mg Tablet 100 mg PO DAILY Qty: 1 RF: 0 Continued atorvastatin 40 mg Tablet 40 mg PO DAILY RF: 0 hydrochlorothiazide 25 mg Tablet 25 mg PO DAILY RF: 0 lisinopril 40 mg Tablet 40 mg PO DAILY RF: 0 Discharge Instructions Instructions: Alcohol Withdrawal (GEN) Activity:: Activity as Tolerated Equipment/Supplies:: No Equipment Needed Diet:: As Tolerated Discharge Orders Discharge Orders: Discharge Order (Routine); Ordered 10/22/19 Ordered By: Mandi Salamanca DS: Summary Status at Discharge Functional status at discharge: independent ambulation Overall status at discharge: patient is progressing back to baseline Mental Status: mental status grossly normal Speech and Movement: speech and movement normal Mood: congruent mood Affect: normal affect Exam Narrative Exam Narrative: General: 53-year-old male, appears stated age, Resting in bed with eyes closed. Awakens easily. Alert and oriented x3. present. No tremor at this time. HEENT: Normocephalic, atraumatic, pupils equal and round, EOMI, mucous membranes moist. Neck: Supple, no JVD. Cardiovascular: Heart has regular rate and rhythm, no murmur appreciated. Respiratory: Respirations appear even and unlabored, lung sounds clear to auscultation bilaterally. GI: Normoactive bowel sounds x4 quadrants, abdomen soft, nontender on palpation. Extremities: Well perfused, no clubbing, cyanosis or edema. No calf swelling or tenderness. Pedal pulses palpable bilaterally. Psych Mental Status: mental status grossly normal Speech and Movement: speech and movement normal Mood: congruent mood Affect: normal affect DS: Data Vitals/I&O Vitals and I&O: Vital Signs Temperature 36.7 C 10/22/19 14:12 Temperature Source Tympanic 10/22/19 14:12 Pulse 86 10/22/19 14:12 Pulse Rhythm Regular 10/22/19 08:55 Pulse 85 10/21/19 04:10 Respiratory Rate 17 10/22/19 14:12 Respiratory Effort Non-Labored 10/22/19 08:55 Respiratory Depth Normal 10/22/19 08:55 Respiratory Pattern Normal 10/22/19 08:55 Blood Pressure 125/78 10/22/19 14:12 Blood Pressure Mean 95 10/21/19 15:24 Blood Pressure Position Supine 10/20/19 18:32 Pulse Oximetry 97 10/22/19 14:12 Oxygen Delivery Method Room Air 10/22/19 14:12 Oxygen Flow Rate 0 10/22/19 14:12 Pain Level 0 10/22/19 14:12 Intake & Output 10/21/19 10/22/19 10/22/19 23:59 11:59 23:59 Weight 99.79 kg 96.6 kg Other: Urine Appearance Clear Clear Data Completed and Pending Labs on day of discharge: Labs from last 24 hours 10/22/19 06:20 Sodium 139 Potassium 4.0 Chloride 105 Carbon Dioxide 24.6 Anion Gap 9.4 BUN 16 D Creatinine 0.91 Estimated GFR/1.73 m2 >= 60.00 Glucose 107 H Calcium 8.5 Magnesium 2.0 PFSH Medical History Alcohol abuse (Chronic) Anxiety (Chronic) Depression (Chronic) Former smoker (Acute) Hyperlipidemia (Acute) Hypertension (Chronic) Surgical History H/O elbow surgery (Acute) H/O right wrist surgery (Acute) H/O spinal fusion (Acute) Social History Smoking/Tobacco Use Status: Former Tobacco Use Alcohol Intake: current Alcohol Intake frequency: 3 or more drinks per day Alcohol type: beer Details: unknown- taking benzodiazepines for withdrawal per pt report. Approx 30 beers/day Additional Social history: unable to assess privately
--- NOTE | 2019-10-23 08:50 | NUR.NOTE ---
Nursing Note: Accessed patient record for [facility], Luz Elena Maharaj. She needed the time that the patient arrived to the facility to report to the State of [place]. Ladan Marcus.
== END 2019-10-22 16:39 | disposition short-term general hospital (02) ==
LOC: ER 10-21 15:31 → MS 10-21 16:10
PROVIDERS: Nurse Practitioner; Student in an Organized Health Care Education/Training Program; Admitting Provider Internal Medicine; Emergency Provider Physician Assistant; PCP Occupational Therapist; Visit Provider Internal Medicine
DX: F10.229 Alcohol dependence with intoxication, unspecified (principal); F10.239 Alcohol dependence with withdrawal, unspecified; R45.851 Suicidal ideations; Y90.6 Blood alcohol level of 120-199 mg/100 ml; F32.9 Major depressive disorder, single episode, unspecified; F41.9 Anxiety disorder, unspecified; F43.8 Other reactions to severe stress; Z63.0 Problems in relationship with spouse or partner; I10 Essential (primary) hypertension; E78.5 Hyperlipidemia, unspecified; Z87.891 Personal history of nicotine dependence
CPT/HCPCS: 36415; 80048; 80053; 80307; 82805; 93005; 96361; 96365; 96366; 99219; 99239; 99285; 80320; 80329; 83735; 84443; 84484; 85025; 93010; 99217; G0378

== ENCOUNTER 2020-01-16 07:52 | Outpatient (CLI) | payer OTHER, SELFPAY | END 2020-01-16 08:12 | PROVIDERS: Visit Provider Orthopaedic Surgery | DX: G56.02 Carpal tunnel syndrome, left upper limb (principal); Z01.818 Encounter for other preprocedural examination ==

== ENCOUNTER 2020-01-26 06:06 | Day surgery (SDC) | payer OTHER, SELFPAY ==
--- NOTE | 2020-01-16 08:50 | DSU.FORM ---
01/16/20 PA and anesthesia informed of patient increased BP left arm 0800 171/105, 0830 left arm 154/103, rt arm 142/95 large cuff used. Patient experiencing tremors and admits to heavy ETOH use. Per patient no ETOH since 2330 01/15/20.
[2020-01-26] VITALS (8 sets, daily range): BP systolic 123–147; BP diastolic 71–97; PULSE 80–91; RESP 8–17; TEMP 36.2–36.7; O2SAT 94–99
[2020-01-26] MEDS: Lactated Ringers 1,000 ML 80 ML IV (06:45)
[2020-01-26] MEDS: ceFAZolin 2 GM/50 ML BAG IVPB (07:29)
[2020-01-26] MEDS: EPINEPHrine 1 MG/ML AMP pres-free ×2 (07:56→09:26)
[2020-01-26] MEDS: Bupivacaine 0.5% Pres-Free 30 ML VIAL ×2 (07:56→09:26)
[2020-01-26] MEDS: Tranexamic Acid 1,000 MG/10 ML VIAL 1000 MG (08:16)
--- NOTE | 2020-01-26 09:37 | PDOC.DSDIS_ITS ---
Discharge Plan Disposition Patient Disposition: HOME Condition: Good Discharge Details Reason For Visit: (L) CTS,(L) ULNAR NEUROPATHY Attending Provider: Reji Parks Primary Care Provider: ,Local Home Meds and New Rx's Prescriptions: New ibuprofen 800 mg tablet 800 mg PO TID Qty: 30 RF: 0 hydrocodone-acetaminophen 5-325 mg tablet 1 tab PO Q6H PRN (Reason: pain) Qty: 14 RF: 0 Continued fluoxetine 20 mg capsule 40 mg PO DAILY RF: 0 atorvastatin 40 mg Tablet 40 mg PO DAILY RF: 0 hydrochlorothiazide 25 mg Tablet 25 mg PO DAILY RF: 0 lisinopril 40 mg Tablet 40 mg PO DAILY RF: 0 multivitamin [Multiple Vitamins] Tablet 1 tab PO DAILY Qty: 0 RF: 0 Discontinued naltrexone 50 mg tablet 50 mg PO DAILY RF: 0 Discharge Instructions Additional Instructions: Hold your naltrexone for 48 hours, then resume so it doesn't react with your hydrocodone. Keep dressings dry for 72 hours. After 72 hours, may remove dressings to shower. Leave last layer of dressing in place. Let it come off by itself. Sling for comfort. May take L arm out of sling and move L elbow as much as your pain allows. Should be out of sling completely within a week. Follow up with in one week. Take ibuprofen as prescribed 3 times/day for 10 days. Take hydrocodone for breakthru pain , if needed. Stand Alone Forms: DSU Post op Instructions Referrals: Reji Parks MD [ [facility] STAFF PHYSICIAN] - (f/u in one week.) Equipment/Supplies: Sling Activity:: Activity as Tolerated Remove Dressings/Wound Care:: 72 hours Shower/Bathe:: 72 hours Diet:: As Tolerated Discharge Orders Discharge Orders: Discharge Order (Routine); Ordered 01/26/20 Ordered By: Reji Parks
--- NOTE | 2020-01-27 17:18 | ROE_ITS ---
DATE OF PROCEDURE: January 26, 2020 PREOPERATIVE DIAGNOSIS: 1. Cubital tunnel syndrome, recurrent, left. 2. Carpal tunnel syndrome, left. PROCEDURE: 1. External neurolysis ulnar nerve at elbow with anterior transposition of the ulnar nerve. 2. Endoscopic carpal tunnel release, left. ANESTHESIA: General. SURGEON: Reji Parks M.D. CHUCKING MACHINE SET UP OPERATOR: Bonny Castro INDICATIONS: Jose David presented with a six month history of numbness and tingling in the ulnar distri bution of the left hand. This was also accompanied by carpal tunnel symptoms in the left hand. He h ad a previous procedure on the ulnar nerve at the elbow performed six years ago in [place]. He t hought that he was told he had a transposition of the nerve and not just a decompression. Because hi s symptoms began again about a year ago, he sought medical attention. Nerve conduction studies were performed, which showed moderate left carpal tunnel syndrome and a moderate left ulnar neuropathy. T his was despite that he had decompression of the ulnar nerve. He had no motor involvement of the uln ar nerve preop. External neurolysis and exploration of the ulnar nerve at the elbow was recommended, along with carpal tunnel release, to alleviate his symptoms. The patient wished to undergo the endo scopic technique of carpal tunnel release. The risks and complications of the procedures were explai rowan to the patient in detail preoperatively. PROCEDURE: The patient was taken to the operating room on 01/26/2020. He was placed supine on the ope rating table and a general anesthetic was administered. The left upper extremity was prepped from ax illa to fingers and draped free in the usual sterile fashion. I made an incision in line with his old medial curved scar. I extended the incision significantly pr oximally in the mid-medial line probably six inches, and distally it was extended approximately two i nches. The incision was carried down through the skin to the subcu. I identified the ulnar nerve pr oximal to the elbow, where it was residing in fairly normal tissue. I then released where the nerve comes to the intermuscular septum proximally, so the nerve was thoroughly decompressed. The nerve in the proximal portion of the wound was pristine in appearance. There was no scar. As I got to about the supracondylar region at the distal humerus, the ulnar nerve as trapped in dense scar. It was de finitely not in the cubital tunnel, but also was not that far on the volar side of the medial epicond yle either. Careful dissection was performed with Littler scissors alternating with scalpel. I put a vessel loop around the nerve proximal to the elbow to provide some gentle traction to aid in the ex ternal neurolysis. The nerve was then completely free from the external scarring as far distal as th e first motor branches were arising. The nerve at this point was thoroughly mobilized and could easi ly be placed anterior to the medial epicondyle without tension. There was still some residual attach ment of the intermuscular septum to the medial humerus and this was released with electrocautery. So as far as I could tell, all external pressure on the nerve was alleviated at this time. It appeared the external neurolysis was complete as well. I then sought to keep the nerve transposed anteriorly in bed of healthy tissue to prevent scarring from reoccurring. I created a fascial sling that was s tarted at the medial epicondyle and reflected in the lateral direction. The nerve was then placed on the lateral side of the sling and then the sling was sutured to the subcu tissue with a couple inter rupted #2-0 Vicryls. This provided a nice subcutaneous sling for the nerve. I checked the nerve to make sure it could be freely moved proximally and distally through the tunnel created with the subcut aneous sling. It was surrounded by subcutaneous fat that should not scar. The wound was then irriga moreno with saline solution. All bleeders were cauterized. The subcu was approximated with interrupted #2-0 Vicryl sutures. The skin was approximated with skin elizabeth. The wound margins were infiltrat ed with 0.5% Marcaine with an epinephrine solution. The ulnar nerve block was performed with 0.5% Ma rcaine with an epinephrine solution. Attention was then turned to the carpal tunnel. A transverse incision was made in line with the prox imal flexion crease of the left wrist, beginning at the flexor carpi radialis tendon and extended to the flexor carpi ulnaris tendon. The incision was carried down through the skin and subcu to the fas andrew. Subcutaneous veins were cauterized. A distally-based fascial flap was then created to gain acc ess to the carpal canal. A synovial reflector was then used to free up any soft tissue attachments t o the undersurface of the volar carpal ligament. A series of obturators were then inserted into the carpal canal to create room for the endoscope blade device. The Jacqueline endoscope blade device was then inserted into the carpal canal and advanced until the distal edge of the volar carpal ligament was c learly visualized. Care was taken to position the endoscope on the ulnar side of the canal. With th e distal edge of the volar carpal ligament visualized, the trigger was depressed, elevating the blade and then the elevated blade was brought out from distal to proximal out through the skin incision. The blade was depressed; the endoscope was replaced and then I elevated the blade again to complete t he transection of the volar carpal ligament. I had to do it twice because the volar carpal ligament was quite thick and the blade wasn't quite long enough to go through the full thickness in one pass. The blade was depressed; the endoscope was reinserted in the canal and the median nerve was then obs erved to fall into the defect created in the volar carpal ligament following transection. Blunt-tipp ed Littler scissors were then used to perform a subcutaneous fasciotomy proximal to the incision by america nguyen. The wound was irrigated with saline solution and the wound margins were infiltrated with 0.5% Marcaine with an epinephrine solution and the median nerve block was performed with 0.5% Marcain e with an epinephrine solution. The skin edges were approximated with two horizontal mattress suture s of #4-0 nylon suture material. Both wound were dressed with Xeroform gauze, sterile gauze 4x4's. The wrist was then wrapped with a 4-inch Kerlix bandage and then a 3-inch NATE bandage. The elbow was wrapped with a 4-inch Kerlix ban dage and then wrapped with 6-inch NATE bandages for a light compressive dressing. The left upper extr emity was placed in a sling. The patient tolerated the procedure well. His anesthesia was reversed without complications. He was discharged to the recovery room in good condition. The patient was given instructions to use the sling for comfort. He may begin to take his arm out of his sling and move his elbow tomorrow. He may keep his arm out of the sling as much as discomfort a llows. He should be weaned out of the sling completely within a week. He is to keep his dressings d ry and clean for 72 hours. After 72 hours he may remove his dressings to shower and get the incision s wet. He should follow-up with me in one week. He will take ibuprofen 800 mg t.i.d. for ten days. He will take Hydrocodone 5/325, one tablet every six hours, as needed, for breakthrough pain. He wi ll hold the use of Naltrexone for 48 hours so it doesn't react with his Hydrocodone.
== END 2020-01-26 12:43 | disposition home or self-care (01) ==
PROVIDERS: Visit Provider Orthopaedic Surgery
PROC: 01N54ZZ Release Median Nerve, Percutaneous Endoscopic Approach (ICD-10-PCS; CPT 29848; principal; 2020-01-26 07:30)
DX: G56.02 Carpal tunnel syndrome, left upper limb (principal); G56.22 Lesion of ulnar nerve, left upper limb; F10.10 Alcohol abuse, uncomplicated
CPT/HCPCS: 64718; 29848; J0171; J0690; J1100; J1885; J2001; J2250; J2370; J2405; J2704; J3010; L3650